=== PATIENT | male | born 1990 | race Caucasian/White ===

== ENCOUNTER 2019-05-09 23:27 | Emergency (ER) | payer BC ==
[~2019-05-09] VITALS: Ht 180.3 cm; Wt 102.1 kg
[~2019-05-09 23:27] MED LIST: CEPH500 PO
[2019-05-10] MEDS ORDERED: CEPH500 PO (00:40)
== END 2019-05-10 01:00 | disposition home or self-care (01) ==
LOC: ER 23:27
DX: S71.131A Puncture wound without foreign body, right thigh, initial encounter (principal); W34.09XA Accidental discharge from other specified firearms, initial encounter
CPT/HCPCS: A9270; A9270-GY; J0690; J1170; J2405; J7030

== ENCOUNTER → 2019-05-14 | Outpatient (CLI) | payer BC ==
[~2019-05-14] MED LIST changes: +Bactrim Ds Tab1 EACH PO; +HYDR1TAB94 PO; +LEVO750 PO
== END | disposition home or self-care (01) ==
LOC: LAB 12:00
DX: T14.8XXA Other injury of unspecified body region, initial encounter (principal)
CPT/HCPCS: 87070; 87075; 87077; 87147; 87186; 87205

== ENCOUNTER 2019-05-16 10:19 | Inpatient (IN) | payer BC ==
[~2019-05-16] VITALS: Ht 177.8 cm; Wt 102.0 kg
[~2019-05-16 10:19] MED LIST changes: -Bactrim Ds Tab1 EACH PO; -HYDR1TAB94 PO; -LEVO750 PO
--- NOTE | 2019-05-16 11:26 | NUR ---
Ambulatory in Day Surgery. History, Chart, Medications and Allergies reviewed before start of procedure. Lungs clear T/O to Auscultation. Patient confirms NPO status and agrees with scheduled surgery. Pre-Op teaching done. Pt verbalizes understanding.
--- NOTE | 2019-05-16 14:40 | NUR ---
PT ARRIVED TO ROOM VIA GURNEY MOVED TO BED WITH OUT ASSIST PT HAS BULKY DRESSING TO R THIGH CDI PT REPORTS PAIN 4-5 PT DENIES NAUSEA CL GIVEN ORIENTED TO ROOM AT BEDSIDE
[2019-05-16 15:47] LABS: Alanine Aminotransfer (ALT/SGP 24 U/L (12-78); Albumin, Blood 3.5 g/dL (3.4-5.0); Albumin/Globulin Ratio 0.9 (0.8-1.8); Alk Phos 54 U/L (50-136); Anion Gap 6 mmol/L (6-16); Aspartate Aminotrans (AST/SGOT 11 U/L (12-37); Bilirubin, Total 0.5 mg/dL (0.1-1.0); Blood Urea Nitrogen 11 mg/dL (8-24); Bun/Creatinine Ratio 10.6 (12.0-20.0); CO2, Blood 29 mmol/L (21-32); Calcium, Blood 8.9 mg/dL (8.5-10.1); Chloride, Blood 104 mmol/L (98-108); Creatinine, Blood 1.04 mg/dL (0.60-1.20); Globulin, Blood 3.7 g/dL (2.2-4.0); Glomerular Filtration Rate >60 (60-); Glucose, Blood 94 mg/dL (70-99); Potassium, Blood 4.4 mmol/L (3.5-5.5); Sodium, Blood 139 mmol/L (136-145); Total Protein, Blood 7.2 g/dL (6.4-8.2)
--- NOTE | 2019-05-16 15:48 | NUR ---
DR CASTELLON BY TO SEE PT
--- NOTE | 2019-05-16 17:06 | NUR ---
PT VOIDED WITH URINAL ASKED IF HE NEEDS ANY BREAK THRU PAIN MEDS AT THIS TIME STATED NO NEXT DOES DUE AT 1900 FOR ORAL MEDS
--- NOTE | 2019-05-16 18:08 | NUR ---
DR CASTELLON CALLED RE CONSULT TO DR RAMIREZ ON HIS CONSULT LINE HE IS NOT AVAIL UNTIL TueMAY [address] NEGRETE WITH PH NUMBER [phone]AGE WITH DR RAMIREZ
--- NOTE | 2019-05-16 18:37 | NUR ---
PT DONE EATING DINNER 2 TAB PO NORCO TO BE GIVEN WILL PLACE IV TKO
[2019-05-17 04:53] LABS: BASOPHILS ABSOLUTE AUTO 0.02 K/mm3 (0.00-0.23); BASOPHILS PERCENT AUTO 0 % (0-2); EOSINOPHILS PERCENT AUTO 0 % (0-6); Hematocrit 47.5 % (37.0-53.0); Hemoglobin 16.1 g/dL (13.5-17.5); IMMATURE GRAN ABSOLUTE AUTO 0.04 K/mm3 (0.00-0.10); IMMATURE GRAN PERCENT AUTO 0 % (0-1); LYMPHOCYTES ABSOLUTE AUTO 1.23 K/mm3 (0.84-5.20); LYMPHOCYTES PERCENT AUTO 9 % (21-46); MONOCYTES ABSOLUTE AUTO 0.76 K/mm3 (0.16-1.47); MONOCYTES PERCENT AUTO 6 % (4-13); Mean Corpuscular HGB 32.5 pg (26.0-34.0); Mean Corpuscular HGB Conc 33.9 g/dL (31.5-36.5); Mean Corpuscular Volume 96 fL (80-100); NEUTROPHILS ABSOLUTE AUTO 11.22 K/mm3 (1.96-9.15); NEUTROPHILS PERCENT AUTO 85 % (41-73); Platelet Count 378 K/mm3 (150-400); RDW Coefficient Variation 12.6 % (11.7-14.2); RDW Standard Deviation 45.1 fL (35.1-46.3); Red Blood Cell Count 4.96 M/mm3 (4.30-5.90); White Blood Cell Count 13.27 K/mm3 (4.00-11.30)
--- NOTE | 2019-05-17 06:18 | NUR ---
SUMMARY PT REFUSED PAIN MEDS TONIGHT. REPOSTIONING SELF IN BED. VOIDING PER URINAL. NO DISTRESS.
--- NOTE | 2019-05-17 16:56 | NUR ---
PATIENT UP W/SBA AND CRUTCHES TO BR. VOIDING. TOLERATING PO. DENIES PAIN. AWAITING DRESSING CHANGE WITH DR CASTELLON TODAY.
--- NOTE | 2019-05-17 18:00 | NUR ---
DR CASTELLON IN TO SEE, R THIGH WOUND PACKED. FENTANYL 50 MCG ADMIN X 2 DURING PROCEDURE. PATIENT NOW RATES PAIN 4/10. UP WITH CRUTCHES ADN SBA. TOLERATING PO. VOIDING. PLAN FOR DR CASTELLON TO CHANGE DRESSING IM AM AND D/C PATIENT TO HOME. NO ACUTE CHANGES OR C/O AT THIS TIME. AT BEDSIDE TO OBSERVE DRESSING CHANGE.
[2019-05-18] MEDS ORDERED: Bactrim Ds Tab1 EACH PO (09:52)
[2019-05-18] MEDS ORDERED: HYDR1TAB94 PO (09:53)
--- NOTE | 2019-05-18 10:02 | NUR ---
0915 DR CASTELLON HER TO COMPLETE DRESSING CHANGE. PATIENT PRE MEDICATED WITH FENTANYL. DR CASTELLON PACKED RIGHT THIGH WOUND WITH APPROX 10 FEET OF 1/2 INCH PLAIN [place]ZE. PATIENT REPORTS PAIN WITH DRESSING CHANGE WAS LESS THAN YESTERDAY. PER PATIENT WOUND LOOKS MUCH IMPROVED WITH NO REDNESS OR PURULENT DRAINAGE
[2019-05-18] MEDS ORDERED: LEVO750 PO (10:08)
--- NOTE | 2019-05-18 11:53 | NUR ---
1115 WOUND CARE DISCHARGE INSTRUCTIONS REVIEWED WITH PATIENT. PATIENT TELLS ME HE AND HIS ARE COMFORTABLE PERFORMING DAILY WOUND PACKING POST DISCHARGE. FOLLOW UP APPT SCHEDULED FOR 05/22/19 AT [facility]. PATIENT PROVIDED WITH SURGICAL FLOOR PHONE NUMBER AND DR PATEL PHONE NUMBER IF HE HAS ANY PROBLEMS OR CONCERNS. PATIENT INSTRUCTED BY DR CASTELLON THAT IF HE IS NOT ABLE TO COMPLETE HOME DRESSING CHANGES HE SHOULD BE SEEN AT THE EMERGENCY ROOM. PATIENT DISCHARGED TO HOME WITH HIS AT [phone]
== END 2019-05-18 11:43 | disposition home or self-care (01) | DRG 605 ==
LOC: ORSCMMR 10:19 → SURS 13:50 → ORSCMMR 13:50 → SURS 14:33
PROVIDERS: ADMIT Orthopaedic Surgery
PROC: 0JDL3ZZ Extraction of Right Upper Leg Subcutaneous Tissue and Fascia, Percutaneous Approach (ICD-10-PCS; principal; 2019-05-16 12:30)
DX: S71.131A Puncture wound without foreign body, right thigh, initial encounter (principal); T81.49XA Infection following a procedure, other surgical site, initial encounter; Y24.9XXA Unspecified firearm discharge, undetermined intent, initial encounter; W32.0XXD Accidental handgun discharge, subsequent encounter; B96.5 Pseudomonas (aeruginosa) (mallei) (pseudomallei) as the cause of diseases classified elsewhere; A49.01 Methicillin susceptible Staphylococcus aureus infection, unspecified site
CPT/HCPCS: 36415; 80053; 80202; 85025; 85651; 86140; 87070; 87075; 87077; 87186; 87205; 90686; 97110; 97116; 97161; 97165; A9270-GY; J0690; J0692; J1100; J2250; J2405; J2704; J3010; J3370; J7050; J7120